=== PATIENT | male | born 1985 ===

== ENCOUNTER 2019-05-01 16:07 | Emergency (ER) | payer BC ==
[~2019-05-01] VITALS: Ht 182.9 cm; Wt 114.0 kg
--- NOTE | 2019-05-01 16:51 | NUR ---
Pt to 24 from lobby
--- NOTE | 2019-05-01 16:53 | NUR ---
PT AMBULATED BACK TO ROOM WITHOUT DIFFICULTY.
--- NOTE | 2019-05-01 17:07 | NUR ---
PT ALSO C/O N/V/D SINCE THIS MORNING. STATES HIS ANXIETY MED (CELEXA) ISN'T WORKING WELL IT DID WHEN HE FIRST STARTED IT. PT LIVES IN [place], CAN'T F/U WITH PCP UNTIL JUNE. PT STATES HE TOOK HIS LAST ATIVAN DOSE THIS MORNING AT 1100. PT CURRENTLY PACING AROUND ROOM. AT .
[2019-05-01] MEDS ORDERED: CITA20TA9 PO (17:21)
[2019-05-01] MEDS ORDERED: ATIVAN PO (17:21)
--- NOTE | 2019-05-01 17:25 | NUR ---
ERP AT NOW.
[2019-05-01] MEDS ORDERED: LORazepam 2 MG/ML, 1ML ONE (17:43)
[2019-05-01 17:56] LABS: BASOPHILS # (AUTO) 0.08 x10^3/uL (0-0.1); BASOPHILS % (AUTO) 1 % (0-1); EOSINOPHILS # (AUTO) 0.24 x10^3/uL (0-0.4); EOSINOPHILS % (AUTO) 2 % (1-7); LYMPHOCYTES # (AUTO) 2.01 x10^3/uL (1-3.4); LYMPHOCYTES % (AUTO) 18 % (22-44); MD NO; MEAN CORPUSCULAR HEMOGLOBIN 32.1 pg (27.5-34.5); MEAN CORPUSCULAR HGB CONC 33.2 g/dL (33.2-36.2); MEAN CORPUSCULAR VOLUME 96.6 fL (81-97); MEAN PLATELET VOLUME 7.7 fL (7.4-10.4); MONOCYTES # (AUTO) 0.68 x10^3/uL (0.2-0.8); MONOCYTES % (AUTO) 6 % (2-9); NEUTROPHILS # (AUTO) 8.43 x10^3/uL (1.8-6.8); NEUTROPHILS % (AUTO) 74 % (42-75); PLATELET COUNT 289 x10^3/uL (130-400); RED BLOOD COUNT 5.53 x10^6/uL (4.38-5.82); RED CELL DISTRIBUTION WIDTH 13.6 % (9.4-14.8)
--- NOTE | 2019-05-01 17:58 | NUR ---
PT MEDICATED PER ORDERS. UNDERSTANDS POC.
[2019-05-01] MEDS ORDERED: PLEASE ENTER ALLERGIES MC SCH (18:00)
[2019-05-01] MEDS ORDERED: LORazepam 2 MG/ML, 1ML IM ONE (18:00)
[2019-05-01 18:07] LABS: ALANINE AMINOTRANSFERASE 108 U/L (12-78); ALBUMIN 4.6 g/dL (3.4-5.0); ANION GAP 9 mmol/L (5-15); CALCIUM 8.8 mg/dL (8.5-10.1); CHLORIDE 108 mmol/L (98-107); CREATININE 1.16 mg/dL (0.7-1.3)
[2019-05-01 18:09] LABS: ALKALINE PHOSPHATASE 64 U/L (45-117); BILIRUBIN,TOTAL 0.8 mg/dL (0.2-1.0); TOTAL PROTEIN 8.2 g/dL (6.4-8.2)
--- NOTE | 2019-05-01 18:18 | NUR ---
PT STATES HE FEELS BETTER, LESS ANXIOUS AFTER ATIVAN. GIRLFRIEND REMAINS AT BS.
--- NOTE | 2019-05-01 18:48 | NUR ---
TASK RN, FIRST CONTACT WITH PT: Patient given discharge instructions and they have confirmed that they understand the instructions. Patient ambulatory with steady gait. Pt and girl friend left with all personal belongings, d/c paperwork, and Rx. NADN. No other needs expressed. Pt states, "I feel much better."
[2019-05-01 18:49] VITALS: BP 137/99
== END 2019-05-01 18:52 | disposition home or self-care (01) ==
LOC: ED 17:53
DX: F41.1 Generalized anxiety disorder (principal)
CPT/HCPCS: 36415; 80053; 85025; 96372; 99284; J2060